=== PATIENT | female | born 1975 | race Caucasian/White ===

== ENCOUNTER 2021-05-18 16:27 | Emergency (ER) | payer OTHER, SELFPAY ==
[2021-05-18 16:28] VITALS: BP 169/86; PULSE 78; RESP 18; TEMP 36.7; O2SAT 95; BMI 25.7
--- NOTE | 2021-05-18 16:41 | ED.VIS.LOWEX ---
HPI History of Present Illness HPI Narrative: Pain right calf after walking down 2 steps this morning 7 AM. No direct falls or injuries. No paresthesias. Advil taken this morning. No history of gastric ulcers or kidney injury. No recent travel, surgeries, immobilizations. No history of PE or DVT. Reports felt a pop when she walked. Denies paresthesias. Pain worsened throughout the day. Chief Complaint: Lower Extremity Injury Informant: patient Narrative Prior similar symptoms: No PFSH PFSH Home Medications NK 05/18/21 [History Last Taken Unknown] Allergy/AdvReac Type Severity Reaction Status Date / Time Sulfa (Sulfonamide Allergy Hives Verified 05/18/21 16:30 Antibiotics) Social History Smoking Status: Never smoker ROS ROS ED Constitutional Constitutional ED: Denies chills, fever(s) or sweats Eyes Eyes: Denies change in vision ENT ENT ED: Denies dysphagia or sore throat Cardiovascular Cardiovascular: Denies chest pain, leg edema, palpitations or racing heartbeat Respiratory/Chest Respiratory/Chest: Denies cough, dyspnea or dyspnea on exertion Gastrointestinal Gastrointestinal: Denies abdominal pain, diarrhea, nausea or vomiting Genitourinary Genitourinary ED: Denies dysuria, hematuria or urinary frequency Musculoskeletal Musculoskeletal: Reports myalgias and other Details: Right calf pain ; Denies back pain, extremity pain or neck pain Integumentary Denies rash or wounds Neurologic Neurologic: Denies headache(s), paresthesias or weakness EXAM Physical Exam Const Vital Signs: 05/18/21 16:28 Temperature 98.1 F Temperature Source Oral Pulse Rate 78 Respiratory Rate 18 Blood Pressure 169/86 H Blood Pressure Mean 113 Pulse Ox 95 Oxygen Delivery Method Room Air Positive well nourished and well developed General Appearance ED: well developed and NAD HEENT Reports moist mucous membranes normocephalic and atraumatic Eyes PERRL, EOMs intact bilaterally and conjunctivae normal General Eye ED: Yes normal appearance of both eyes Neck no lymphadenopathy and supple General: Negative for tenderness Chest Wall Chest: Negative for tenderness Resp normal respiratory effort and normal air movement Effort and Inspection: symmetric chest movement; Negative for respiratory distress Cardio regular rate, regular rhythm and no murmurs Peripheral Pulses: pulses 2+ throughout GI normal to inspection, nondistended, normoactive bowel sounds and non-tender Palpation: Negative for guarding or rebound tenderness present Back/Spine no CVA tenderness and no thoracic nor lumbar tenderness Extremity Extremity Narrative: Right lower extremity: Neuro vas intact distally. No knee tenderness. There is tender palpation mid belly of the calf up into the popliteal region. There is no swelling. Skin intact. No significant pain with plantar flexion against resistance. General Extremety ED: Negative for edema or tenderness General Extremity: Negative for edema Neuro oriented x3 and no sensory deficits noted Sensorium / Orientation: awake and alert Skin no rashes or lesions noted and no wounds MDM MDM MDM Narrative Medical decision making narrative: Patient history concern for a muscle strain however with mid calf pain that feels deeper rating up into the popliteal region, ultrasound obtained negative for any DVT. I discussed with instrument and electrical technician there is no edema noted around the muscles. Patient was given Motrin. Should continue 600 mg every 6 hours for next 2 days and as needed. Raphael wrap provided. Patient able to ambulate. All questions were answered. Discharge Plan Triage Chief Complaint: Lower Extremity Injury ED Provider: Brooks Sung Dx/Rx/DC Orders Clinical Impression: Strain of right calf muscle Instructions: ED Muscle Strain, Extremity Prescriptions: No Action NK RF: 0 Primary Care Provider: Care Physician,No Primary Referrals: Darnell Nolen MD [STAFF PHYSICIAN] - 1 Week if not improving Care Physician,No Primary [Primary Care Provider] - Disposition Disposition: Home, Self Care
--- NOTE | 2021-05-18 16:46 | US_ITS ---
HISTORY: RT CALF PAIN X 1 DAY EXAMINATION: US Venous Duplex LE Unilat / Limited: TECHNIQUE: Rdz scale, pulse wave, and color flow Doppler imaging was performed of the lower extremity venous system. The right greater saphenous, common femoral, femoral, popliteal, peroneal and posterior tibial veins were interrogated. COMPARISON: None FINDINGS: # of images incl. paperwork: 17 There is normal compression, augmentation, and color flow signal throughout the visualized deep lower extremity veins. US/Venous Duplex Imag/Limited/Uni IMPRESSION: No sonographic evidence of deep venous thrombosis. at 1736 Reported and signed by: Vic Leon MD Electronically Signed: Vic Leon MD at 17:35 EDT Tel , Service support ,
== END 2021-05-18 17:51 | disposition home or self-care (01) ==
PROVIDERS: Emergency Provider Emergency Medicine
DX: S86.811A Strain of other muscle(s) and tendon(s) at lower leg level, right leg, initial encounter (principal); X58.XXXA Exposure to other specified factors, initial encounter; Y93.01 Activity, walking, marching and hiking; Y92.9 Unspecified place or not applicable; Y99.9 Unspecified external cause status
CPT/HCPCS: 93971; 99282

== ENCOUNTER 2024-08-16 21:52 | Emergency (ER) | payer OTHER, SELFPAY ==
[2024-08-16 21:53] VITALS: BP 146/109; PULSE 83; RESP 16; TEMP 36.6; O2SAT 99; BMI 24.8
--- NOTE | 2024-08-16 22:05 | EX.ED.UPPERE ---
HPI History of Present Illness Chief Complaint: Upper Extremity Injury Informant: patient and spouse/S.O. Narrative Narrative: 48-year-old female sudden onset pain in anterior right shoulder that started today earlier, in the afternoon, progressively worsening incident started. She thinks she did something but does not remember what she was doing when it started. She denies any numbness tingling, states her right shoulder feels heavy with pain hurts more to move, almost similar to when she was dislocate it in the past. 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 It was with Dr[address] Singh and no longer is practicing here. PFSH PFSH Home Medications ?Medication ?Instructions ?Recorded ?Last Taken ?Type hydrocodone-acetaminophen 5-325mg 1 tab PO Q6H PRN PRN Pain 3 days 08/16/24 Unknown Rx 5mg-325mg #10 TABLETS metoprolol succinate 50 mg 50 mg PO DAILY 08/16/24 Unknown History tablet,extended release 24 hr rizatriptan 10 mg tablet 10 mg PO DAILY PRN 08/16/24 Unknown History Allergy/AdvReac Type Severity Reaction Status Date / Time Sulfa (Sulfonamide Allergy Hives Verified 08/16/24 21:55 Antibiotics) Social History Smoking Status: Never smoker ROS ROS ED Constitutional Constitutional ED: Denies chills or fever(s) Musculoskeletal Musculoskeletal: Reports extremity pain; Denies neck pain Integumentary Denies Abrasions, rash or wounds Neurologic Neurologic: Denies paresthesias or weakness EXAM Physical Exam Const Vital Signs: 08/16/24 21:53 Temperature 97.8 F Temperature Source Oral Pulse Rate 83 Respiratory Rate 16 Blood Pressure 146/109 H Blood Pressure Mean 121 Pulse Ox 99 Oxygen Delivery Method Room Air Positive well nourished and well developed General Appearance ED: well developed and NAD Neck full ROM and supple Back/Spine normal ROM and normal to inspection Extremity Extremity Narrative: No deformities right shoulder. She is tender anteriorly at the long head of the biceps, but she has a negative Yergason sign. She does have a abnormal/positive Speed test. She can abduct without significant discomfort, and can do that with greater range then she can forward flexion. Mild tenderness subacromial. No acromioclavicular joint tenderness or clavicle tenderness or bony acromion tenderness. Full range of motion of the elbow and wrist and hand without any difficulty, 2+/4 radial pulse. Neuro oriented x3, no focal motor deficits and no sensory deficits noted Sensorium / Orientation: alert Psych mental status grossly normal and thought process normal Skin no wounds Rashes: no rashes MDM MDM MDM Narrative Medical decision making narrative: Patient declined parenteral analgesics, she was given a Watson and ibuprofen which helped some, and we obtained a right shoulder series. 2 view x-ray series of my interpretation shows no dislocation or acute fracture or obvious etiology for her pain, I do not see any calcific tendinitis. Clinically and more concerned about the biceps being the cause of this. She is offered a sling which she will take to use to rested as needed, ice, anti-inflammatories over the weekend to give her prescription for some analgesics, and refer to an upper extremity orthopedic. Radiography Diagnostic Testing: Clinical Impression(s) from Imaging Studies Shoulder X-Ray 08/16/24 22:30 IMPRESSION: No fracture or dislocation. Electronically Signed: Dannie Hassan DO at 23:31 EST , Discharge Plan Triage Chief Complaint: Upper Extremity Injury ED Provider: Sarbjit Rincon Dx/Rx/DC Orders Clinical Impression: Strain of right biceps tendon Instructions: Biceps Tendonitis Prescriptions: New hydrocodone-acetaminophen 5-325 mg tablet 1 tab PO Q6H PRN PRN (Reason: Pain) 3 Days Qty: 10 0RF No Action rizatriptan 10 mg tablet 10 mg PO DAILY PRN Patient Comments: PLEASE SEE ATTACHED FOR DETAILED DIRECTIONS metoprolol succinate 50 mg tablet extended release 24 hr 50 mg PO DAILY Primary Care Provider: Sherri Mccabe NP Referrals: Dajuan King DO [Med Staff - Active Staff] - 1 Week if not improving Print Language: Kinyarwanda Disposition Disposition: Home, Self Care
[2024-08-16] MEDS: Ibuprofen 600 MG Tablet PO (22:12)
[2024-08-16] MEDS: HYDROcodone Bitartrate/Apap 5/325 Tablet PO (22:12)
--- NOTE | 2024-08-16 22:30 | RAD_ITS ---
INDICATION: pain poss injury EXAMINATION/TECHNIQUE: X-RAY - RIGHT XR Shoulder Min 2 Views COMPARISON: None. FINDINGS: SOFT TISSUES: Calcific density lateral to the humeral head which may represent calcific rotator cuff tendinopathy. BONES/JOINTS: No fracture or dislocation. No significant degenerative changes. No erosive changes. RAD/Shoulder min 2 Views IMPRESSION: No fracture or dislocation. Electronically Signed: Dannie Hassan DO at 23:31 EST ,
[2024-08-16 23:50] VITALS: BP 116/61; PULSE 63; RESP 16; TEMP 36.7; O2SAT 96
== END 2024-08-16 23:51 | disposition home or self-care (01) ==
PROVIDERS: Emergency Provider Emergency Medicine; PCP Nurse Practitioner Family; Visit Provider Emergency Medicine
DX: S46.211A Strain of muscle, fascia and tendon of other parts of biceps, right arm, initial encounter (principal); X58.XXXA Exposure to other specified factors, initial encounter; Z88.2 Allergy status to sulfonamides
CPT/HCPCS: 73030; 99284